=== PATIENT | female | born 1995 | race Caucasian/White ===

== ENCOUNTER 2020-01-11 04:51 | Emergency (ER) | payer MEDICAID, OTHER ==
[~2020-01-11] VITALS: Ht 165.1 cm; Wt 86.2 kg
--- NOTE | 2020-01-11 04:51 | NUR ---
PT BIB [facility], PREBOOK. TAKEN TO CHAIR
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
[2020-01-11 04:54] VITALS: BP 132/72
--- NOTE | 2020-01-11 04:55 | NUR ---
Dr. Do examining patient.
[2020-01-11 05:05] VITALS: BP 132/72
--- NOTE | 2020-01-11 05:05 | NUR ---
PATIENT BIB [facility]. PATIENT EXAMINED BY . PATIENT MEDICALLY CLEARED AND RELEASED IN CUSTODY IN STABLE CONDITION. ORIGINAL PRE-BOOK FORM GIVEN TO OFFICER JOSE. NO NURSING EVALUATION NEEDED.
== END 2020-01-11 05:05 ==
LOC: MED 04:51
DX: Z02.89 Encounter for other administrative examinations (principal); V49.40XA Driver injured in collision with unspecified motor vehicles in traffic accident, initial encounter; Y93.89 Activity, other specified; Y92.89 Other specified places as the place of occurrence of the external cause; Y99.8 Other external cause status
CPT/HCPCS: 99283